=== PATIENT | male | born 1965 | race Caucasian/White ===

== ENCOUNTER 2017-06-27 11:32 | Emergency (ER) | payer SELFPAY ==
[~2017-06-27] VITALS: Ht 170.2 cm; Wt 90.7 kg
[2017-06-27] MEDS ORDERED: IV NORMAL SALINE 1000ML BAG 1,000 ML IV SCH (11:58)
[2017-06-27] MEDS ORDERED: ONDANSETRON PF 4 MG/2 ML VIAL. IV ONE (12:00)
[2017-06-27] MEDS ORDERED: fentaNYL PF VIAL 100 MCG/2 ML VIAL ONE (12:04)
[2017-06-27] MEDS ORDERED: ONDANSETRON PF 4 MG/2 ML VIAL. ONE (12:04)
[2017-06-27] MEDS: fentaNYL PF VIAL 100 MCG/2 ML VIAL IV PRN ×2 (12:10→12:42)
[2017-06-27 12:14] LABS: BILIRUBIN,URINE NEGATIVE (NEG); GLUCOSE,URINE NEGATIVE (NEG); NITRITE,URINE NEGATIVE (NEG); PROTEIN,URINE 30 mg/dL (NEG-TRACE)
[2017-06-27 12:20] LABS: GFR 78.8; POTASSIUM 3.6 mmol/L (3.5-5.1)
[2017-06-27 12:24] LABS: BARBITURATES NEG (NEG); BENZODIAZEPINES NEG (NEG); CANNABINOIDS NEG (NEG); COCAINE NEG (NEG); METHADONE NEG (NEG); OPIATES NEG (NEG); PHENCYCLIDINE NEG (NEG)
[2017-06-27 12:25] LABS: BASO # 0.1 x10^3/uL (0.0-0.2); BASO % 1 % (0-3); EOS % 1 % (0-3); HEMATOCRIT 46.5 % (39.0-53.0); HEMOGLOBIN 16.1 g/dL (13.0-17.5); LYMPH # 2.5 x10^3/uL (1.0-4.8); LYMPH % 21 % (24-48); MEAN CORPUSCULAR HEMOGLOBIN 32 pg (25-35); MEAN CORPUSCULAR HGB CONC 35 g/dL (31-37); MEAN CORPUSCULAR VOLUME 92 fL (79-100); MONO % 6 % (0-9); NEUT % 72 % (31-73); PLATELET COUNT 233 x10^3/uL (140-400); RED BLOOD COUNT 5.08 x10^6/uL (4.30-5.70); RED CELL DISTRIBUTION WIDTH 13.1 % (11.5-14.5); WHITE BLOOD COUNT 11.9 x10^3/uL (4.0-11.0)
[2017-06-27 12:25] LABS: BACTERIA,URINE 0 /HPF (0-FEW); RBC,URINE 20-40 /HPF (0-2); SQUAMOUS EPITHELIAL CELL,UR FEW /LPF
[2017-06-27 12:26] LABS: ALBUMIN 3.7 g/dL (3.4-5.0); TOTAL BILIRUBIN 0.6 mg/dL (0.2-1.0); TOTAL PROTEIN 7.5 g/dL (6.4-8.2)
--- NOTE | 2017-06-27 12:32 | PHYS DOC ---
Past Medical History Past Medical History: Kidney Stone Past Surgical History: Other Additional Past Surgical Histo: KNEE SX Alcohol Use: None Drug Use: None Adult General Chief Complaint Chief Complaint: ABDOMINAL PAIN HPI HPI Patient is a 52 year old male who presents to the ED with the complaint of severe pain in his right flank and right abdomen which began about 9:00 this morning. She was driving. It started gradually "like a pinch". It became worse and he felt "like I needed to put eat or poop". Became more irritating and then became severe. When it was severe, he was dizzy, weak, and nauseated. On arrival , he states the pain is severe. He states he can't walk straight because it hurt so bad. He's been having dry heaves and vomiting. Patient states he's had about 3 kidney stones in the past. The last one was several years ago and they told him it was 4 mm and he thinks he must have passed it because he never did anything about it. He does not have a primary care doctor or a urologist. The patient denies current ongoing medical problems. Review of Systems Review of Systems Constitutional: Denies fever or chills [] HENT: Denies nasal congestion or sore throat [] Respiratory: Denies cough or shortness of breath [] Cardiovascular: Denies chest pain that sounds cardiac GI: As in history of present illness : Denies dysuria or hematuria [] Musculoskeletal: Denies back pain or joint pain [] Integument: Denies rash or skin lesions [] Neurologic: Denies headache, focal weakness or sensory changes [] Current Medications Current Medications Current Medications Medications (Trade) Dose Ordered Sig/Chely Start Time Stop Time Status Last Admin Dose Admin Fentanyl Citrate (Fentanyl 2ml Vial) 100 mcg STK-MED ONCE 06/27/17 12:04 06/27/17 12:05 DC Ketorolac Tromethamine (Toradol) 30 mg 1X ONCE 06/27/17 13:30 06/27/17 13:31 DC 06/27/17 13:19 30 MG Ondansetron HCl (Zofran) 4 mg STK-MED ONCE 06/27/17 12:04 06/27/17 12:05 DC Sodium Chloride 1,000 ml @ 100 mls/hr 1X ONCE 06/27/17 14:30 06/27/17 15:58 DC 06/27/17 14:30 100 MLS/HR Tamsulosin HCl (Flomax) 0.4 mg 1X ONCE 06/27/17 13:30 06/27/17 13:31 DC 06/27/17 13:17 0.4 MG Allergies Allergies Allergies Coded Allergies Type Severity Reaction Last Updated Verified No Known Drug Allergies 06/27/17 No Physical Exam Physical Exam Constitutional: Well developed, well nourished, alert, mentating normally, having dry heaves, writhing around in pain. HENT: Normocephalic, atraumatic, bilateral external ears normal, nose normal. [] Eyes: conjunctiva normal, no discharge. [] Neck: Normal range of motion, no stridor. [] Cardiovascular:Heart rate regular rhythm, no murmur [] Lungs & Thorax: Bilateral breath sounds clear to auscultation [] Abdomen: Bowel sounds normal, soft, nondistended, no tenderness, no masses, no pulsatile masses. [] Skin: Warm, dry, no erythema, no rash. [] Back: Mild right CVA tenderness Extremities: No tenderness, no cyanosis, no clubbing, ROM intact, no edema. [] Neurologic: Alert and oriented X 3, normal motor function, normal sensory function, no focal deficits noted. [] Current Patient Data Vital Signs Vital Signs Date Time Temp Pulse Resp B/P (MAP) Pulse Ox O2 Delivery O2 Flow Rate FiO2 06/27/17 15:30 68 21 127/72 (90) 98 Room Air 06/27/17 11:32 97.4 97.4 Lab Values Laboratory Tests Test 06/27/17 11:45 06/27/17 12:04 White Blood Count 11.9 x10^3/uL (4.0-11.0) H Red Blood Count 5.08 x10^6/uL (4.30-5.70) Hemoglobin 16.1 g/dL (13.0-17.5) Hematocrit 46.5 % (39.0-53.0) Mean Corpuscular Volume 92 fL (79-100) Mean Corpuscular Hemoglobin 32 pg (25-35) Mean Corpuscular Hemoglobin Concent 35 g/dL (31-37) Red Cell Distribution Width 13.1 % (11.5-14.5) Platelet Count 233 x10^3/uL (140-400) Neutrophils (%) (Auto) 72 % (31-73) Lymphocytes (%) (Auto) 21 % (24-48) L Monocytes (%) (Auto) 6 % (0-9) Eosinophils (%) (Auto) 1 % (0-3) Basophils (%) (Auto) 1 % (0-3) Neutrophils # (Auto) 8.5 x10^3uL (1.8-7.7) H Lymphocytes # (Auto) 2.5 x10^3/uL (1.0-4.8) Monocytes # (Auto) 0.7 x10^3/uL (0.0-1.1) Eosinophils # (Auto) 0.1 x10^3/uL (0.0-0.7) Basophils # (Auto) 0.1 x10^3/uL (0.0-0.2) Sodium Level 137 mmol/L (136-145) Potassium Level 3.6 mmol/L (3.5-5.1) Chloride Level 103 mmol/L (98-107) Carbon Dioxide Level 22 mmol/L (21-32) Anion Gap 12 (6-14) Blood Urea Nitrogen 13 mg/dL (8-26) Creatinine 1.0 mg/dL (0.7-1.3) Estimated GFR (Cockcroft-Gault) 78.8 BUN/Creatinine Ratio 13 (6-20) Glucose Level 111 mg/dL (70-99) H Calcium Level 9.0 mg/dL (8.5-10.1) Total Bilirubin 0.6 mg/dL (0.2-1.0) Aspartate Amino Transferase (AST) 19 U/L (15-37) Alanine Aminotransferase (ALT) 32 U/L (16-63) Alkaline Phosphatase 164 U/L (46-116) H Total Protein 7.5 g/dL (6.4-8.2) Albumin 3.7 g/dL (3.4-5.0) Albumin/Globulin Ratio 1.0 (1.0-1.7) Lipase 159 U/L (73-393) Urine Color Princess Urine Clarity Clear Urine pH 6.0 Urine Specific [place] 1.025 Urine Protein 30 mg/dL (NEG-TRACE) Urine Glucose (UA) Negative mg/dL (NEG) Urine Ketones (Stick) Trace mg/dL (NEG) Urine Blood Large (NEG) Urine Nitrite Negative (NEG) Urine Bilirubin Negative (NEG) Urine Urobilinogen Dipstick 1.0 mg/dL (0.2 mg/dL) Urine Leukocyte Esterase Negative (NEG) Urine RBC 20-40 /HPF (0-2) Urine WBC 1-4 /HPF (0-4) Urine Squamous Epithelial Cells Few /LPF Urine Bacteria 0 /HPF (0-FEW) Urine Opiates Screen Neg (NEG) Urine Methadone Screen Neg (NEG) Urine Barbiturates Neg (NEG) Urine Phencyclidine Screen Neg (NEG) Urine Amphetamine/Methamphetamine Neg (NEG) Urine Benzodiazepines Screen Neg (NEG) Urine Cocaine Screen Neg (NEG) Urine Cannabinoids Screen Neg (NEG) Urine Ethyl Alcohol Neg (NEG) Laboratory Tests 06/27/17 11:45 Laboratory Tests 06/27/17 11:45 EKG EKG [] Radiology/Procedures Radiology/Procedures CT scan of the abdomen and pelvis without contrast read by the radiologist. 6 mm stone in the proximal to mid right ureter with mild [place].[] Course & Med Decision Making Course & Med Decision Making Pertinent Labs and Imaging studies reviewed. (See chart for details) 52-year-old male with a history of kidney stones in the past presents with acute onset of right flank and right-sided abdominal pain today. I discussed with the patient that we will give him some pain and nausea medications and IV fluids, and check some labs and a CT scan. He is agreeable to that plan. CT scan shows a 6 mm stone in the proximal to mid right ureter. After CT, the patient's pain is back. He was remedicated. I ordered Flomax and Toradol as well. The patient is continuing to have significant pain and I don't believe his pain will be able to be controlled as an outpatient. It also seems unlikely that a 6 mm proximal right ureter stone will pass on its own. I recommended hospitalization. We do not have a urologist here so I discussed this with the patient and his family. Their first choice for transfer is [facility]. 1312 I spoke with Vidhi at [facility] transfer. They will see if they have a bed. 1335 call back from [facility]. They do not have a bed and unable to accept the patient because of that. Patient and family state their second choice would be [facility]. 1343 I spoke with Meredith at the [facility] transfer team. She will check on bed availability and get back to me. 1410 call back from [facility], I spoke with Dr. Monge who will accept the patient. They will call back with a bed assignment. He asked that the patient be kept nothing by mouth at this time. Nursing staff was informed that we are waiting for a bed assignment in order to make transfer arrangements to . [] Dragon Disclaimer Dragon Disclaimer This electronic medical record was generated, in whole or in part, using a voice recognition dictation system. Departure Departure Impression: Primary Impression: Right ureteral stone Additional Impression: Renal colic on right side Disposition: 02 TRANSFER [facility] Condition: STABLE Problem Qualifiers MAYRA GANT MD Jun 27, 2017 12:32
--- NOTE | 2017-06-27 12:57 | RAD ---
CT scan of the abdomen and pelvis without contrast 06/27/2017 Clinical history: Right flank pain since earlier today. Technique: Unenhanced, contiguous, 2 mm axial sections were obtained to the abdomen and pelvis. One or more of the following individualized dose reduction techniques were utilized for this study: 1. Automated exposure control. 2. Adjustment of the mA and/or kV according to patient size. 3. Use of iterative reconstruction technique. Findings: Images through the lung bases demonstrate minimal dependent subsegmental atelectasis bilaterally. The liver, spleen, pancreas, and adrenal glands are within normal limits. Multiple nonobstructing calculi are seen scattered throughout both kidneys. These measure 2 to 4 mm in size. There is no evidence of obstruction of the left collecting system. The right kidney is mildly enlarged. Mild dilatation of right intrarenal collecting system and the proximal right ureter is seen. Within the proximal/mid right ureter at the L3 level, a 6 mm ureteral calculus is seen which is causing mild obstruction of the right collecting system. Moderate atherosclerotic calcification of the abdominal aorta and its branches is seen. The abdominal aorta tapers normally. The gallbladder is slightly contracted. No free fluid or free air is seen within the abdomen. There is no evidence of bowel obstruction. The appendix is well visualized and is within normal limits. Images through the pelvis demonstrate the urinary bladder distended with urine. Scattered diverticula are seen involving the colon. No inflammatory changes are seen in the adjacent fat. No free fluid is seen. Minimal S shaped curvature of the thoracic lumbar spine is noted. Degenerative changes are seen involving the lower thoracic and throughout the lumbar spine. Impression: 6 mm right ureteral calculus is seen within the proximal/mid right ureter at the L3 level which is causing mild obstruction of the right collecting system.
[2017-06-27] MEDS ORDERED: KETOROLAC 30 MG/ML INJ. IV ONE (13:30)
[2017-06-27] MEDS ORDERED: TAMSULOSIN 0.4 MG CAP.ER.24H. PO ONE (13:30)
[2017-06-27] MEDS ORDERED: IV NORMAL SALINE 1000ML BAG 1,000 ML IV ONE (14:30)
[2017-06-27 15:30] VITALS: BP 127/72
== END 2017-06-27 15:37 | disposition short-term general hospital (02) ==
LOC: ER 11:32
DX: N20.1 Calculus of ureter (principal); Z87.442 Personal history of urinary calculi; Z79.899 Other long term (current) drug therapy
CPT/HCPCS: 36415; 74176; 80053; 80307; 81001; 83690; 85025; 96361; 96374; 96375; 96376; 99285; J1885; J2405; J3010; J7030; G0479